=== PATIENT | female | born 1950 | race Caucasian/White ===

== ENCOUNTER 2023-02-11 23:23 | Emergency (ER) | payer MEDICARE ==
[~2023-02-11] VITALS: Ht 162.6 cm; Wt 53.0 kg
[2023-02-11 23:44] VITALS: TEMP 97.9
[2023-02-11] MEDS ORDERED: IPRATROPIUM BROMIDE 0.5 MG/2.5 ML NEB SOLUTION NEB ONE (23:45)
[2023-02-11] MEDS ORDERED: ALBUTEROL SULFATE 2.5 MG/0.5 ML NEB SOLUTION NEB ONE (23:45)
[2023-02-11] MEDS ORDERED: PredniSONE 20 MG TABLET PO ONE (23:45)
[2023-02-11 23:51] VITALS: PULSE 65; RESP 19; O2SAT 96
[2023-02-12] MEDS ORDERED: LORazepam 1 MG TABLET PO ONE
[2023-02-12 00:35] LABS: BASOPHILS % (AUTO) 1.4 % (0.0-2.0); EOSINOPHILS % (AUTO) 12.2 % (1.0-6.0); HEMATOCRIT 40.6 % (36-46); HEMOGLOBIN 13.6 g/dL (12.0-16.0); LYMPHOCYTES # (AUTO) 3.7 K/uL (1.0-4.8); LYMPHOCYTES % (AUTO) 46.7 % (22.0-44.0); MEAN CORPUSCULAR HEMOGLOBIN 30.9 pg (26.0-34.0); MEAN CORPUSCULAR HGB CONC 33.5 G/dL (31.0-37.0); MEAN CORPUSCULAR VOLUME 92 fL (80-100); MONOCYTES # (AUTO) 0.4 K/uL (0.1-1.0); NEUTROPHILS # (AUTO) 2.8 K/uL (1.8-7.7); NEUTROPHILS % (AUTO) 34.7 % (40.0-70.0); PLATELET COUNT (AUTO) 374 K/uL (150-450); RED CELL DISTRIBUTION WIDTH 13.6 % (11.5-14.5); WHITE BLOOD COUNT (AUTO) 7.9 K/uL (4.5-11.0)
[2023-02-12 00:45] LABS: CARBON DIOXIDE 28 mmol/L (22-29); CHLORIDE 103 mmol/L (98-107); SODIUM SERUM 141 mmol/L (136-145)
[2023-02-12 00:46] LABS: ALANINE AMINOTRANSFERASE 25 U/L (12-78); ALBUMIN 3.6 g/dL (3.4-5.0); ALKALINE PHOSPHATASE 56 U/L (46-116); ANION GAP 10 mmol/L (8-16); ASPARTATE AMINOTRANSFERASE 22 U/L (15-37); BILIRUBIN,TOTAL 0.1 mg/dL (0.1-1.0); CALCIUM, TOTAL 9.2 mg/dL (8.8-10.5); GLOMERULAR FILTR. RATE CALC > 60 mL/min (>60); GLUCOSE,RANDOM 106 mg/dL (70-110); UREA NITROGEN, BLOOD 18 mg/dL (7-18)
[2023-02-12 00:59] LABS: TROPONIN I-HIGH SENSITIVITY 6 ng/L (<51)
[2023-02-12 01:02] LABS: POTASSIUM 2.8 mmol/L (3.5-5.1)
[2023-02-12] MEDS ORDERED: POTASSIUM CHLORIDE 20 MEQ ER TABLET PO ONE ×2 (01:15→01:30)
[2023-02-12] MEDS ORDERED: ALBU18HF12 IH (01:29)
[2023-02-12 01:55] VITALS: BP 112/71; PULSE 63; RESP 19
== END 2023-02-12 02:46 | disposition home or self-care (01) ==
LOC: EMS 23:31
DX: F41.9 Anxiety disorder, unspecified (principal); J45.909 Unspecified asthma, uncomplicated; I10 Essential (primary) hypertension
CPT/HCPCS: 99285; 71045; 80053; 83880; 84484; 85025; 36415; 94640; 93005; J7512; J7613

== ENCOUNTER 2024-08-22 13:55 | Inpatient (IN) | payer MEDICARE ==
[~2024-08-22] VITALS: Ht 157.5 cm; Wt 59.0 kg
[~2024-08-22 13:55] MED LIST: ALBU18HF12 IH; ATOR20TA65 PO; DULO30CA89 PO; FLUT1AER IH; PRED-549 PO
[2024-08-22] MEDS ORDERED: AMLO5TAB66 PO (14:28)
[2024-08-22] MEDS ORDERED: LISI30TA PO (14:28)
[2024-08-22 14:54] LABS: BASOPHILS % (AUTO) 0.9 % (0.0-2.0); EOSINOPHILS % (AUTO) 6.9 % (1.0-6.0); HEMATOCRIT 34.9 % (36-46); HEMOGLOBIN 11.6 g/dL (12.0-16.0); LYMPHOCYTES # (AUTO) 1.8 K/uL (1.0-4.8); LYMPHOCYTES % (AUTO) 40.8 % (22.0-44.0); MEAN CORPUSCULAR HEMOGLOBIN 30.1 pg (26.0-34.0); MEAN CORPUSCULAR HGB CONC 33.3 G/dL (31.0-37.0); MEAN CORPUSCULAR VOLUME 90 fL (80-100); MONOCYTES # (AUTO) 0.2 K/uL (0.1-1.0); NEUTROPHILS # (AUTO) 2.1 K/uL (1.8-7.7); NEUTROPHILS % (AUTO) 46.4 % (40.0-70.0); PLATELET COUNT (AUTO) 315 K/uL (150-450); RED BLOOD CELL COUNT(AUTO) 3.86 MIL/uL (4.00-5.20); RED CELL DISTRIBUTION WIDTH 17.2 % (11.5-14.5); WHITE BLOOD COUNT (AUTO) 4.4 K/uL (4.5-11.0)
[2024-08-22 15:00] LABS: ANION GAP 7 mmol/L (8-16); CALCIUM, TOTAL 8.8 mg/dL (8.8-10.5); CARBON DIOXIDE 31 mmol/L (22-29); CHLORIDE 107 mmol/L (98-107); CREATININE 0.63 mg/dL (0.60-1.30); GLOMERULAR FILTR. RATE CALC > 60 mL/min (>60); GLUCOSE,RANDOM 84 mg/dL (70-110); POTASSIUM 3.8 mmol/L (3.5-5.1); SODIUM SERUM 145 mmol/L (136-145); UREA NITROGEN, BLOOD 16 mg/dL (7-18)
[2024-08-22 15:05] LABS: B-TYPE NATRIURETIC PEPTIDE 46 pg/mL (0-100)
[2024-08-22 15:06] LABS: CREATINE KINASE, TOTAL ONLY 171 U/L (26-192)
[2024-08-22 15:11] LABS: LACTIC ACID 1.2 mmol/L (0.4-2.0); TROPONIN I-HIGH SENSITIVITY 8 ng/L (<51)
[2024-08-22] MEDS: SODIUM CHLORIDE 0.9% 1,000 ML IV ONE ×2 (15:11→21:28)
[2024-08-22 15:50] LABS: APPEARANCE,URINE CLEAR (CLEAR); BILIRUBIN,URINE NEGATIVE (NEGATIVE); COLOR,URINE YELLOW (YELLOW); GLUCOSE, URINE (UA) NEGATIVE (NEGATIVE); KETONES,URINE NEGATIVE (NEGATIVE); LEUKOCYTE ESTERASE ,URINE SMALL (NEGATIVE); NITRATE,URINE NEGATIVE (NEGATIVE); OCCULT BLOOD,URINE SMALL (NEGATIVE); PH,URINE 5.5 (5.0-8.0); PROTEIN,URINE TRACE mg/dL (NEGATIVE); SPECIFIC GRAVITIY, URINE 1.019 (1.003-1.030); UROBILINOGEN,URINE <=1.0 mg/dL (<=1.0)
[2024-08-22 16:05] LABS: BACTERIA,URINE Few /HPF (None Seen); SQUAMOUS EPITHELIAL CELL,UR Few /LPF (None Seen)
[2024-08-22] MEDS ORDERED: MAGNESIUM HYDROXIDE SUSPENSION 30 ML UDCUP PO PRN (19:45)
[2024-08-22] MEDS ORDERED: ALBUTEROL SULFATE HFA 90 MCG/PUFF 8 GM INHALER IH PRN (19:45)
[2024-08-22] MEDS ORDERED: ACETAMINOPHEN 325 MG TABLET PO PRN (19:45)
[2024-08-22] MEDS ORDERED: ONDANSETRON HCL 4 MG/2 ML VIAL IVP PRN (19:45)
[2024-08-22] MEDS ORDERED: ZOLPIDEM TARTRATE 5 MG TABLET PO PRN (19:45)
[2024-08-22] MEDS ORDERED: BISACODYL 10 MG RECTAL RECTAL SUPPOSITORY PR PRN (19:45)
[2024-08-22] MEDS: CefTRIAXone 1 GM/DEXTROSE 50 ML IV ONE (20:26)
[2024-08-22] MEDS: LIDOCAINE 5% TRANSDERMAL PATCH TD ONE (20:27)
[2024-08-22] MEDS: DOCUSATE SODIUM 100 MG CAPSULE PO SCH (21:00)
[2024-08-22 22:54] VITALS: BP 132/72; PULSE 69; RESP 18; TEMP 98.1; O2SAT 95
[2024-08-22] MEDS: HEPARIN SODIUM,PORCINE 5,000 UNITS/ML VIAL SQ SCH (23:43)
[2024-08-23 03:50] VITALS: BP 127/80; PULSE 70; RESP 18; TEMP 98.2; O2SAT 97
[2024-08-23] MEDS: ATORVASTATIN CALCIUM 20 MG TABLET PO SCH (07:56)
[2024-08-23] MEDS: DULoxetine HCL 30 MG CAPSULE PO SCH (07:57)
[2024-08-23 08:05] VITALS: BP 146/90; PULSE 83; RESP 18; TEMP 98.2; O2SAT 100
[2024-08-23] MEDS: FLUTICASONE/VILANTEROL 100-25 MCG/INH INHALER [14] IH SCH (09:57)
[2024-08-23 19:42] VITALS: BP 158/80; PULSE 75; RESP 18; TEMP 98.1; O2SAT 96
[2024-08-23] MEDS: AmLODIPine BESYLATE 5 MG TABLET PO SCH (21:06)
[2024-08-24 04:50] VITALS: BP 131/75; PULSE 73; RESP 18; TEMP 98.1; O2SAT 100
[2024-08-24 07:34] LABS: BASOPHILS % (AUTO) 0.8 % (0.0-2.0); EOSINOPHILS % (AUTO) 3.6 % (1.0-6.0); HEMATOCRIT 35.3 % (36-46); LYMPHOCYTES # (AUTO) 1.1 K/uL (1.0-4.8); LYMPHOCYTES % (AUTO) 23.3 % (22.0-44.0); MEAN CORPUSCULAR VOLUME 88 fL (80-100); MONOCYTES # (AUTO) 0.6 K/uL (0.1-1.0); MONOCYTES % (AUTO) 12.5 % (2.0-9.0); NEUTROPHILS # (AUTO) 2.8 K/uL (1.8-7.7); NEUTROPHILS % (AUTO) 59.8 % (40.0-70.0); PLATELET COUNT (AUTO) 260 K/uL (150-450); RED BLOOD CELL COUNT(AUTO) 3.99 MIL/uL (4.00-5.20); RED CELL DISTRIBUTION WIDTH 16.1 % (11.5-14.5); WHITE BLOOD COUNT (AUTO) 4.6 K/uL (4.5-11.0)
[2024-08-24 07:55] LABS: ANION GAP 10 mmol/L (8-16); CALCIUM, TOTAL 8.7 mg/dL (8.8-10.5); CARBON DIOXIDE 28 mmol/L (22-29); CHLORIDE 98 mmol/L (98-107); CREATININE 0.54 mg/dL (0.60-1.30); GLOMERULAR FILTR. RATE CALC > 60 mL/min (>60); GLUCOSE,RANDOM 90 mg/dL (70-110); POTASSIUM 3.5 mmol/L (3.5-5.1); SODIUM SERUM 136 mmol/L (136-145); UREA NITROGEN, BLOOD 11 mg/dL (7-18)
[2024-08-24 08:26] VITALS: BP 149/75; PULSE 78; RESP 18; TEMP 97.7; O2SAT 98
[2024-08-24] MEDS ORDERED: CEPH-558 PO (10:08)
== END 2024-08-24 16:45 | disposition home or self-care (01) | DRG 640 ==
LOC: EMS 13:57 → EDH 16:54 → 6N 22:02
PROVIDERS: ADMIT Internal Medicine; ATTEND Internal Medicine
DX: E86.0 Dehydration (principal); G93.41 Metabolic encephalopathy; N39.0 Urinary tract infection, site not specified; I10 Essential (primary) hypertension; E78.5 Hyperlipidemia, unspecified; F03.90 Unspecified dementia, unspecified severity, without behavioral disturbance, psychotic disturbance, mood disturbance, and anxiety; J45.909 Unspecified asthma, uncomplicated; Z88.5 Allergy status to narcotic agent; Z88.1 Allergy status to other antibiotic agents; Z87.891 Personal history of nicotine dependence; Z79.899 Other long term (current) drug therapy; Z88.8 Allergy status to other drugs, medicaments and biological substances
CPT/HCPCS: 70450; 71045; 80048; 81001; 82550; 83605; 83880; 84484; 85025; 87040; 93005; 97161; 99285; J0696; J1644; 36415-L1; 36415-TC

== ENCOUNTER 2024-11-04 20:48 | Emergency (ER) | payer MEDICARE ==
[~2024-11-04] VITALS: Ht 160 cm; Wt 60.0 kg
[~2024-11-04 20:48] MED LIST changes: +AMLO5TAB66 PO; +CEPH-558 PO; +DULO30CA62 PO; -DULO30CA89 PO; +LISI30TA PO
[2024-11-04 22:45] LABS: PLATELET COUNT (AUTO) 361 K/uL (150-450); RED BLOOD CELL COUNT(AUTO) 4.18 MIL/uL (4.00-5.20); RED CELL DISTRIBUTION WIDTH 15.0 % (11.5-14.5); WHITE BLOOD COUNT (AUTO) 6.2 K/uL (4.5-11.0)
[2024-11-04 22:54] LABS: CALCIUM, TOTAL 7.9 mg/dL (8.8-10.5); CREATININE 0.60 mg/dL (0.60-1.30); GLOMERULAR FILTR. RATE CALC > 60 mL/min (>60); GLUCOSE,RANDOM 103 mg/dL (70-110); SODIUM SERUM 143 mmol/L (136-145); UREA NITROGEN, BLOOD 16 mg/dL (7-18)
[2024-11-04 22:57] LABS: ALCOHOL, BLOOD (SERUM) 233.0 mg/dL (0-10)
[2024-11-04 22:58] LABS: ASPARTATE AMINOTRANSFERASE 40.0 U/L (15-37); TOTAL PROTEIN, SERUM 5.7 g/dL (6.4-8.2)
[2024-11-04 23:04] LABS: TROPONIN I-HIGH SENSITIVITY 8 ng/L (<51)
[2024-11-04 23:05] VITALS: TEMP 98.705336
[2024-11-04 23:24] LABS: APPEARANCE,URINE CLEAR (CLEAR); GLUCOSE, URINE (UA) NEGATIVE (NEGATIVE); LEUKOCYTE ESTERASE ,URINE NEGATIVE (NEGATIVE); NITRATE,URINE NEGATIVE (NEGATIVE); OCCULT BLOOD,URINE NEGATIVE (NEGATIVE); PH,URINE DRUG SCREEN 5.5 (5.0-8.0); SPECIFIC GRAVITIY, URINE 1.008 (1.003-1.030)
[2024-11-04 23:35] LABS: AMPHET/METH SCREEN,URINE NEGATIVE (NEGATIVE); BARBITURATE SCREEN, URINE NEGATIVE (NEGATIVE); CANNABINOID SCREEN,URINE NEGATIVE (NEGATIVE); COCAINE SCREEN,URINE NEGATIVE (NEGATIVE); METHADONE SCREEN, URINE NEGATIVE (NEGATIVE)
[2024-11-04 23:58] LABS: ALCOHOL, URINE DRUG SCREEN POSITIVE (NEGATIVE)
[2024-11-05 00:41] VITALS: BP 131/78; PULSE 65; RESP 16; O2SAT 98
== END 2024-11-05 03:27 | disposition home or self-care (01) ==
LOC: EMS 20:50
DX: F10.129 Alcohol abuse with intoxication, unspecified (principal); F03.90 Unspecified dementia, unspecified severity, without behavioral disturbance, psychotic disturbance, mood disturbance, and anxiety; I10 Essential (primary) hypertension; J45.909 Unspecified asthma, uncomplicated; Z88.8 Allergy status to other drugs, medicaments and biological substances; Z88.5 Allergy status to narcotic agent; Z88.1 Allergy status to other antibiotic agents; Z79.52 Long term (current) use of systemic steroids; Z79.51 Long term (current) use of inhaled steroids; Z79.899 Other long term (current) drug therapy; Z87.891 Personal history of nicotine dependence; Y90.7 Blood alcohol level of 200-239 mg/100 ml
CPT/HCPCS: 99285; 71045; 80048; 80076; 84484; 85025; 85610; 85730; 36415; 93005; 80307; 81003; G0480

== ENCOUNTER 2025-01-09 11:47 | Inpatient (IN) | payer MEDICARE ==
[~2025-01-09] VITALS: Ht 157.5 cm; Wt 55.8 kg
[2025-01-09 12:57] LABS: PLATELET COUNT (AUTO) 343 K/uL (150-450); RED BLOOD CELL COUNT(AUTO) 4.07 MIL/uL (4.00-5.20); RED CELL DISTRIBUTION WIDTH 19.2 % (11.5-14.5); WHITE BLOOD COUNT (AUTO) 5.9 K/uL (4.5-11.0)
[2025-01-09 13:06] LABS: CALCIUM, TOTAL 8.3 mg/dL (8.8-10.5); CREATININE 0.74 mg/dL (0.60-1.30); GLOMERULAR FILTR. RATE CALC > 60 mL/min (>60); GLUCOSE,RANDOM 95 mg/dL (70-110); SODIUM SERUM 140 mmol/L (136-145); UREA NITROGEN, BLOOD 20 mg/dL (7-18)
[2025-01-09 13:10] LABS: ASPARTATE AMINOTRANSFERASE 29 U/L (15-37); TOTAL PROTEIN, SERUM 6.8 g/dL (6.4-8.2)
[2025-01-09 13:16] LABS: ALCOHOL, BLOOD (SERUM) 324 mg/dL (0-10)
[2025-01-09 13:34] LABS: COVID AG,FIA SOURCE NASAL SWAB
[2025-01-09 13:49] LABS: APPEARANCE,URINE CLEAR (CLEAR); GLUCOSE, URINE (UA) NEGATIVE (NEGATIVE); LEUKOCYTE ESTERASE ,URINE SMALL (NEGATIVE); NITRATE,URINE NEGATIVE (NEGATIVE); OCCULT BLOOD,URINE TRACE (NEGATIVE); PH,URINE DRUG SCREEN 5.5 (5.0-8.0); SPECIFIC GRAVITIY, URINE 1.005 (1.003-1.030)
[2025-01-09 13:56] LABS: AMPHET/METH SCREEN,URINE NEGATIVE (NEGATIVE); BARBITURATE SCREEN, URINE NEGATIVE (NEGATIVE); CANNABINOID SCREEN,URINE NEGATIVE (NEGATIVE); COCAINE SCREEN,URINE NEGATIVE (NEGATIVE); METHADONE SCREEN, URINE NEGATIVE (NEGATIVE)
[2025-01-09 13:57] LABS: ALCOHOL, URINE DRUG SCREEN POSITIVE (NEGATIVE); SQUAMOUS EPITHELIAL CELL,UR Few /LPF (None Seen)
[2025-01-09 14:15] LABS: SARS-COV2 (COVID) ANTIGEN,FIA Negative (Negative)
[2025-01-09] MEDS: SODIUM CHLORIDE 0.9% 1,000 ML IV ONE (15:04)
[2025-01-09] MEDS ORDERED: ZOLPIDEM TARTRATE 5 MG TABLET PO PRN (16:15)
[2025-01-09] MEDS ORDERED: IPRATROPIUM BROMIDE 0.5 MG/2.5 ML NEB SOLUTION NEB PRN (16:15)
[2025-01-09] MEDS ORDERED: BISACODYL 10 MG RECTAL RECTAL SUPPOSITORY PR PRN (16:15)
[2025-01-09] MEDS ORDERED: MAGNESIUM HYDROXIDE SUSPENSION 30 ML UDCUP PO PRN (16:15)
[2025-01-09] MEDS ORDERED: ONDANSETRON HCL 4 MG/2 ML VIAL IVP PRN (16:15)
[2025-01-09] MEDS ORDERED: ALBUTEROL SULFATE 2.5 MG/0.5 ML NEB SOLUTION NEB PRN (16:15)
[2025-01-09 18:46] LABS: CALCIUM, TOTAL 8.0 mg/dL (8.8-10.5); CREATININE 0.61 mg/dL (0.60-1.30); GLOMERULAR FILTR. RATE CALC > 60 mL/min (>60); GLUCOSE,RANDOM 122 mg/dL (70-110); SODIUM SERUM 142 mmol/L (136-145); UREA NITROGEN, BLOOD 16 mg/dL (7-18)
[2025-01-09 18:49] LABS: ASPARTATE AMINOTRANSFERASE 31.0 U/L (15-37); TOTAL PROTEIN, SERUM 6.5 g/dL (6.4-8.2)
[2025-01-09] MEDS: DOCUSATE SODIUM 100 MG CAPSULE PO SCH (20:06)
[2025-01-09 20:36] VITALS: BP 117/60; PULSE 75; RESP 18; TEMP 98.2; O2SAT 98
[2025-01-10] VITALS (7 sets, daily range): BP systolic 129–150; BP diastolic 67–79; PULSE 68–81; RESP 16–18; TEMP 98.1–98.6; O2SAT 96–100
[2025-01-10] MEDS: HEPARIN SODIUM,PORCINE 5,000 UNITS/ML VIAL SQ SCH (00:10)
[2025-01-10 06:38] LABS: PLATELET COUNT (AUTO) 318 K/uL (150-450); RED BLOOD CELL COUNT(AUTO) 3.93 MIL/uL (4.00-5.20); RED CELL DISTRIBUTION WIDTH 18.9 % (11.5-14.5); WHITE BLOOD COUNT (AUTO) 7.4 K/uL (4.5-11.0)
[2025-01-10 06:39] LABS: CALCIUM, TOTAL 8.3 mg/dL (8.8-10.5); CREATININE 0.54 mg/dL (0.60-1.30); GLOMERULAR FILTR. RATE CALC > 60 mL/min (>60); GLUCOSE,RANDOM 87 mg/dL (70-110); SODIUM SERUM 141 mmol/L (136-145); UREA NITROGEN, BLOOD 16 mg/dL (7-18)
[2025-01-10] MEDS: ATORVASTATIN CALCIUM 20 MG TABLET PO SCH (08:54)
[2025-01-10 15:53] LABS: COVID AG,FIA SOURCE NASAL SWAB
[2025-01-10 16:21] LABS: SARS-COV2 (COVID) ANTIGEN,FIA Negative (Negative)
[2025-01-10] MEDS: ACETAMINOPHEN 325 MG TABLET PO PRN (21:07)
[2025-01-11 05:02] VITALS: BP 143/72; PULSE 68; RESP 18; TEMP 98.4; O2SAT 95
[2025-01-11 06:38] LABS: PLATELET COUNT (AUTO) 321 K/uL (150-450); RED BLOOD CELL COUNT(AUTO) 4.05 MIL/uL (4.00-5.20); RED CELL DISTRIBUTION WIDTH 18.6 % (11.5-14.5); WHITE BLOOD COUNT (AUTO) 7.2 K/uL (4.5-11.0)
[2025-01-11 06:51] LABS: CALCIUM, TOTAL 8.8 mg/dL (8.8-10.5); CREATININE 0.57 mg/dL (0.60-1.30); GLOMERULAR FILTR. RATE CALC > 60 mL/min (>60); GLUCOSE,RANDOM 104 mg/dL (70-110); SODIUM SERUM 136 mmol/L (136-145); UREA NITROGEN, BLOOD 15 mg/dL (7-18)
[2025-01-11 07:29] VITALS: BP 121/67; PULSE 70; RESP 18; TEMP 98; O2SAT 99
[2025-01-11 11:55] VITALS: BP 133/65; PULSE 73; RESP 18; TEMP 98.2; O2SAT 97
[2025-01-11 16:16] VITALS: BP 134/69; PULSE 69; RESP 17; TEMP 98; O2SAT 97
== END 2025-01-11 19:25 | disposition home or self-care (01) | DRG 918 ==
LOC: EMS 11:47 → EDH 16:09 → 5S 20:24 → 5N 01-10 11:45
PROVIDERS: ADMIT Internal Medicine; ATTEND Internal Medicine
DX: T46.5X2A Poisoning by other antihypertensive drugs, intentional self-harm, initial encounter (principal); E44.0 Moderate protein-calorie malnutrition; F03.93 Unspecified dementia, unspecified severity, with mood disturbance; J44.9 Chronic obstructive pulmonary disease, unspecified; I10 Essential (primary) hypertension; F10.129 Alcohol abuse with intoxication, unspecified; F32.9 Major depressive disorder, single episode, unspecified; J44.89 Other specified chronic obstructive pulmonary disease; Y90.8 Blood alcohol level of 240 mg/100 ml or more; E78.5 Hyperlipidemia, unspecified; F03.90 Unspecified dementia, unspecified severity, without behavioral disturbance, psychotic disturbance, mood disturbance, and anxiety; Z20.822 Contact with and (suspected) exposure to COVID-19; Z79.899 Other long term (current) drug therapy; Z88.8 Allergy status to other drugs, medicaments and biological substances; Z88.1 Allergy status to other antibiotic agents; Y92.89 Other specified places as the place of occurrence of the external cause; Z87.891 Personal history of nicotine dependence; Z88.5 Allergy status to narcotic agent; Z68.22 Body mass index [BMI] 22.0-22.9, adult
CPT/HCPCS: 71045; 80048; 80061; 80076; 80307; 81001; 83036; 85025; 93005; 96360; 99285; G0378; G0480; G0481; J1644; 36415-L1; 36415-TC

== ENCOUNTER 2025-02-23 23:49 | Emergency (ER) | payer MEDICARE ==
[~2025-02-23] VITALS: Ht 154.9 cm; Wt 62.8 kg
[~2025-02-23 23:49] MED LIST changes: -PRED-549 PO
[2025-02-24 01:06] VITALS: TEMP 98.7
[2025-02-24 04:00] VITALS: BP 141/65; PULSE 72; RESP 16; O2SAT 98
== END 2025-02-24 05:28 | disposition home or self-care (01) ==
LOC: EMS 23:49
DX: J45.909 Unspecified asthma, uncomplicated (principal); F03.90 Unspecified dementia, unspecified severity, without behavioral disturbance, psychotic disturbance, mood disturbance, and anxiety; I10 Essential (primary) hypertension; Z87.891 Personal history of nicotine dependence; Z88.8 Allergy status to other drugs, medicaments and biological substances; Z88.1 Allergy status to other antibiotic agents; Z88.5 Allergy status to narcotic agent; Z79.899 Other long term (current) drug therapy; Z79.51 Long term (current) use of inhaled steroids
CPT/HCPCS: 99283; Z7502